=== PATIENT | female | born 1950 | race Caucasian/White ===

== ENCOUNTER → 2021-03-08 | Outpatient (CLI) | payer MEDICARE | LOC: KOH-I 02-19 13:00 | DX: M54.2 Cervicalgia (principal); M48.02 Spinal stenosis, cervical region | CPT/HCPCS: 72141 ==

== ENCOUNTER → 2021-03-15 | Outpatient (CLI) | payer MEDICARE | LOC: KOH-I 03-08 13:00 | DX: I65.23 Occlusion and stenosis of bilateral carotid arteries (principal) | CPT/HCPCS: 93880 ==

== ENCOUNTER → 2021-06-04 | Outpatient (CLI) | payer MEDICARE | LOC: MRI 11:16 | PROVIDERS: Neurological Surgery | DX: H53.459 Other localized visual field defect, unspecified eye (principal); R20.2 Paresthesia of skin; Z00.00 Encounter for general adult medical examination without abnormal findings | CPT/HCPCS: 36415; 70553; 80048; A9577 ==